=== PATIENT | male | born 1995 | race Caucasian/White ===

== ENCOUNTER 2016-09-19 21:54 | Emergency (ER) | payer BC ==
--- NOTE | 2016-09-19 22:39 | ED ---
Abdominal Pain/Male - HPI Summary HPI Summary: 21M presents with right inguinal pain for a couple hours. He says that he thinks he has a inguinal hernia as he felt a lump. He denies any n/v or fever. He denies having this pain before. He states he has been having loose stools for a couple days but denies any constipation. He denies any blood in her urine or stool or dysuria. He denies any testicular or scrotal pain or discharge. - History of Current Complaint Chief Complaint: EDAbdPain Stated Complaint: LOWER ABD PAIN Time Seen by Provider: 09/19/16 22:18 Pain Intensity: 4 - Allergies/Home Medications Allergies/Adverse Reactions: Allergies Allergy/AdvReac Type Severity Reaction Status Date / Time No Known Allergies Allergy Verified 09/19/16 22:00 PMH/Surg Hx/FS Hx/Imm Hx Endocrine/Hematology History: Denies: Hx Anticoagulant Therapy Cardiovascular History: Denies: Hx Hypertension Infectious Disease History: No Infectious Disease History: Denies: Traveled Outside the [place] in Last 30 Days - Family History Known Family History: Negative: Cardiac Disease - Social History Occupation: Student Alcohol Use: Occasionally Substance Use Type: Reports: None Smoking Status (MU): Never Smoked Tobacco Review of Systems Negative: Fever Negative: Chest Pain Negative: Shortness Of Breath Positive: Abdominal Pain - right inguinal pain, Diarrhea. Negative: Vomiting, Nausea All Other Systems Reviewed And Are Negative: Yes Physical Exam Triage Information Reviewed: Yes Vital Signs On Initial Exam: Initial Vitals Temp Pulse Resp BP Pulse Ox 97.7 F 53 16 128/76 99 09/19/16 21:57 09/19/16 21:57 09/19/16 21:57 09/19/16 21:57 09/19/16 21:57 Vital Signs Reviewed: Yes Appearance: Positive: Well-Appearing Skin: Positive: Warm, Dry Head/Face: Positive: Normal Head/Face Inspection Eyes: Positive: Normal, Conjunctiva Clear ENT: Positive: Normal ENT inspection, Pharynx normal, TMs normal Respiratory/Lung Sounds: Positive: Clear to Auscultation, Breath Sounds Present Cardiovascular: Positive: Normal, RRR Male Genital Exam: Positive: normal genitalia, other - no hernia felt on exam, tender to right inguinal area Diagnostics - Vital Signs Vital Signs Temp Pulse Resp BP Pulse Ox 09/19/16 21:57 97.7 F 53 16 128/76 99 - Laboratory Result Diagrams: 09/19/16 23:50 09/19/16 23:50 Lab Statement: Any lab studies that have been ordered have been reviewed, and results considered in the medical decision making process. - CT ab CT Interpretation: No Acute Changes CT Interpretation Completed By: Radiologist Abdominal Pain Fem Course/Dx - Course Course Of Treatment: 21M presents with right inguinal pain today. was playing in sport when notice it and thought felt a lump, no n/v or consitipation, on exam no hernia felt, patient states that would like to definitively know if has hernia states only was is to have a CT, patient requested a CT. CT was normal, discussed likely muscle muscle and to have follow up with primary, patient understands and agrees with plan - Diagnoses Differential Diagnosis/HQI/PQRI: Testicular Torsion, Urinary Tract Infection, Other - hernia Provider Diagnoses: Right inguinal pain Discharge - Discharge Plan Condition: Good Disposition: HOME [facility]: [facility] [Primary Care Provider] - Additional Instructions: Take ibuprofen for pain every 6 hours Follow up with Lauri within 5 days Return to ED if develop any new or worsening symptoms
[2016-09-20 00:02] LABS: Hematocrit 43 % (42-52); Hemoglobin 14.8 g/dl (14.0-18.0); Mean Corpuscular HGB Conc 34 g/dl (31-36); Mean Corpuscular Hemoglobin 30 pg (27-31); Mean Corpuscular Volume 88 fL (80-94); Mean Platelet Volume 9 um3 (7.4-10.4); Red Blood Count 4.94 10^6/ul (4.0-5.4); Red Cell Distribution Width 12 % (10.5-15); White Blood Count 9.9 10^3/ul (3.5-10.8)
[2016-09-20 00:12] LABS: Albumin 5.2 g/dL (3.2-5.2); BUN/Creatinine Ratio 17.3 (8-20); Calcium 10.2 mg/dL (8.6-10.3); EGFR African American 117.1 (>60); Globulin 2.8 g/dL (2-4); Potassium 3.9 mmol/L (3.5-5.0); Total Bilirubin 0.8 mg/dL (0.2-1.0)
[2016-09-20 00:38] LABS: Urine Bilirubin Negative (Negative); Urine Glucose Negative (Negative); Urine Nitrite Negative (Negative)
[2016-09-20] MEDS ORDERED: Iohexol 300* (CONTRAST) 10 ML SDV IV ONE (00:52)
[2016-09-20 02:18] VITALS: BP 122/65
--- NOTE | 2016-09-20 08:58 | RAD ---
Indication: Evaluate for hernia. Contrast: Administered 131.0 ml of OMNIPAQUE 300 mgi/ml CT of the abdomen and pelvis was performed after oral and IV contrast demonstration. Coronal and sagittal reconstructed images were obtained. The lung bases demonstrate no pleural fluid, nodules or masses. Heart is of normal size without evidence pericardial effusion. Liver is normal in size. No focal lesions or intrahepatic ductal dilatation is noted. The gallbladder demonstrates no calcified gallstones. No pericholecystic fluid or wall thickening is noted. The spleen is normal in size. No adrenal lesions are noted. The kidneys demonstrate no hydronephrosis. No retroperitoneal lymphadenopathy is noted. The pancreas demonstrates no mass or pancreatic ductal location. No evidence of abnormal dilatation of bowel is noted. Contrast is noted in the colon. CT of the pelvis demonstrates normal appearing appendix. No dilated loops of bowel are noted. The urinary bladder is unremarkable. No hernias are noted. Urinary bladder is unremarkable. Prostate and seminal vesicles are unremarkable. The bony structures demonstrates wedge deformity of T11. Age of these are undetermined. No fracture identified. IMPRESSION: No abnormal masses or fluid collections are noted. No hernias are noted.
== END 2016-09-20 02:18 | disposition home or self-care (01) ==
LOC: ED 21:54
DX: R10.9 Unspecified abdominal pain (principal); R19.7 Diarrhea, unspecified
CPT/HCPCS: 36415; 74177; 80053; 81003; 85025; 99282; Q9967